=== PATIENT | male | born 1975 | race Caucasian/White ===

== ENCOUNTER → 2019-09-30 | Outpatient (CLI) | payer OTHER | LOC: M.RAD 13:50 | DX: R05 Cough (principal); R53.83 Other fatigue; R09.89 Other specified symptoms and signs involving the circulatory and respiratory systems; J02.9 Acute pharyngitis, unspecified ==

== ENCOUNTER → 2019-10-07 | Outpatient (CLI) | payer OTHER ==
--- NOTE | 2019-10-14 15:26 | SLEEP ---
[address] [address] SLEEP STUDY REPORT Name: BALTA JACOME Room: [facility]#: [id number] Admission: 10/07/19 Attend Phys: Everardo Adame MD Discharge: Date of : 71 Report #: [id number] THIS REPORT FOR: //name// CC: Everardo Adame MD This study has been reviewed in its entirety by a board certified sleep specialist DATE OF SERVICE: 10/07/2019 HOME SLEEP STUDY REFERRING PHYSICIAN: Everardo Adame MD The patient is 44 years old who weighs 295 pounds with a BMI of 42.3. The patient's Frazee score was 6. The patient underwent a home sleep study performed at [facility]. Total recording time was 463 minutes. During the night study, the patient had 222 obstructive apneas, no central or mixed apneas and 124 hypopneas. The patient's apnea hypopnea index was 49.5 per hour. Nocturnal oximetry study revealed an average oxygen saturation of 88% with lowest of 49%. 205 minutes were spent in oxygen saturation less than 90%, another 87 minutes with saturation of less than 85%, another 45 minutes with saturation of less than 80% and 22 minutes with saturation of less than 70%. Mean heart rate 76 beats per minute with a highest of 111 beats per minute. IMPRESSION: 1. Severe sleep apnea-hypopnea syndrome at an AHI of 49.5 per hour. 2. Severe nocturnal hypoxia secondary to obstructive sleep apnea. RECOMMENDATIONS: 1. The patient should return for in-lab CPAP titration study. 2. Once the patient is optimally treated with CPAP, then follow up in 4-6 weeks to assess compliance and to document clinical improvement. 3. Weight loss is strongly advised. 4. Avoid [employer] depressants. 5. Cautioned regarding driving until symptoms of sleep apnea resolve with the use of CPAP. <ELECTRONICALLY SIGNED> By: Chicho Sanchez MD 10/14/19 1526 [id number] Sanchez MD /nt
== END ==
LOC: M.SLEEPLAB 15:00
DX: G47.30 Sleep apnea, unspecified (principal)